=== PATIENT | female | born 1945 | race Caucasian/White ===

== ENCOUNTER → 2016-06-12 | Outpatient (CLI) | payer OTHER | LOC: BRMIMAGING 14:20 | PROVIDERS: ATTEND Internal Medicine | DX: M51.37 Other intervertebral disc degeneration, lumbosacral region (principal); M46.96 Unspecified inflammatory spondylopathy, lumbar region; M46.97 Unspecified inflammatory spondylopathy, lumbosacral region | CPT/HCPCS: 72114-PO ==

== ENCOUNTER → 2017-03-28 | Outpatient (CLI) | payer OTHER | LOC: BRMIMAGING 11:42 | PROVIDERS: ATTEND Family Medicine | DX: Z12.31 Encounter for screening mammogram for malignant neoplasm of breast (principal) | CPT/HCPCS: G0202 ==

== ENCOUNTER → 2017-04-23 | Outpatient (CLI) | payer OTHER | LOC: BRMIMAGING 14:15 | PROVIDERS: ATTEND Internal Medicine | DX: Z13.820 Encounter for screening for osteoporosis (principal); M80.08XA Age-related osteoporosis with current pathological fracture, vertebra(e), initial encounter for fracture ==

== ENCOUNTER → 2018-04-08 | Outpatient (CLI) | payer OTHER | LOC: BRMIMAGING 13:56 | PROVIDERS: ATTEND Family Medicine | DX: Z12.31 Encounter for screening mammogram for malignant neoplasm of breast (principal); Z80.3 Family history of malignant neoplasm of breast ==